=== PATIENT | female | born 1975 ===

== ENCOUNTER 2017-04-11 19:49 | Emergency (ER) | payer OTHER, SELFPAY ==
[2017-04-11 20:00] VITALS: BP 143/80; PULSE 80; RESP 19; TEMP 98.1; O2SAT 98
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
--- NOTE | 2017-04-12 08:06 | RAD ---
PROCEDURE: Cervical Spine Radiographs. HISTORY: Pain. COMPARISON: None. FINDINGS: BONES: Straightened cervical curvature without fracture or spondylolisthesis identified this time. Pediatric process appears intact as well as C1-2 articulation and craniocervical junction. Posterior elements appear unremarkable diffusely. DISC SPACES: Normal. SOFT TISSUES: Normal. No prevertebral soft tissue swelling. OTHER FINDINGS: None. IMPRESSION: Straightened cervical curvature without displaced fracture appreciable. If symptoms persist or worsen follow-up CT or MRI should be considered.
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
== END 2017-04-11 23:55 | disposition home or self-care (01) ==
LOC: H.ER 19:49
DX: S13.4XXA Sprain of ligaments of cervical spine, initial encounter (principal); S39.012A Strain of muscle, fascia and tendon of lower back, initial encounter; V43.52XA Car driver injured in collision with other type car in traffic accident, initial encounter; Y92.410 Unspecified street and highway as the place of occurrence of the external cause
CPT/HCPCS: 72040; 72100; 81025; 96372; 99283; J1885